=== PATIENT | female | born 1990 | race Caucasian/White ===

== ENCOUNTER 2017-06-26 12:51 | Outpatient (CLI) | payer OTHER ==
[2017-06-26 18:11] LABS: BASOPHILS # (AUTO) 0.1 10^3/uL (0.0-0.1); BASOPHILS % (AUTO) 0.8 %; EOSINOPHILS % (AUTO) 0.7 %; HGB - HEMOGLOBIN 13.3 g/dL (12.0-16.0); LYMPHOCYTES # (AUTO) 1.4 10^3/uL (1.5-3.5); LYMPHOCYTES % (AUTO) 20.5 %; MEAN CORPUSCULAR HEMOGLOBIN 27.5 pg (27.0-31.0); MEAN CORPUSCULAR HGB CONC 32.3 g/dL (32.0-36.0); MEAN CORPUSCULAR VOLUME 85.3 fL (81.0-99.0); MEAN PLATELET VOLUME 9.9 fL (7.9-10.8); MONOCYTES # (AUTO) 0.4 10^3/uL (0.0-1.0); MONOCYTES % (AUTO) 5.1 %; NEUTROPHILS # (AUTO) 5.1 10^3/uL (1.5-6.6); NEUTROPHILS % (AUTO) 72.9 %; PLT - PLATELET COUNT 191 10^3/uL (130-450); RED BLOOD COUNT 4.82 10^6/uL (4.20-5.40); RED CELL DISTRIBUTION WIDTH 14.5 % (12.0-15.0)
[2017-06-26 18:53] LABS: ALBUMIN 4.7 g/dL (3.2-5.5); ALBUMIN/GLOBULIN RATIO 1.5 (1.0-2.2); ALKALINE PHOSPHATASE 53 IU/L (42-121); ALT ALANINE AMINOTRANSFERASE 17 IU/L (10-60); AST ASPARTATE AMINOTRANSFERASE 24 IU/L (10-42); BUN - BLOOD UREA NITROGEN 6 mg/dL (6-20); CALCIUM 9.5 mg/dL (8.5-10.3); CARBON DIOXIDE - CO2 24 mmol/L (21-32); CHLORIDE 104 mmol/L (101-111); CHOL/HDL RATIO 2.1 (<4.4); CHOLESTEROL 145 mg/dL; CREATININE 0.6 mg/dL (0.4-1.0); GFR - MDRD 121 (>89); GLUCOSE 84 mg/dL (70-100); HDL CHOLESTEROL 69 mg/dL; LDL CHOLESTEROL,CALCULATED 65 mg/dL; LDL/HDL RATIO 0.9 (<4.4); SODIUM 136 mmol/L (135-145); TOTAL PROTEIN 7.9 g/dL (6.7-8.2); VLDL CHOLESTEROL 11 mg/dL
== END 2017-06-26 12:52 | disposition home or self-care (01) ==
LOC: LAB.F 12:51
PROVIDERS: ATTEND Physician Assistant Medical
DX: Z00.00 Encounter for general adult medical examination without abnormal findings (principal)
CPT/HCPCS: 36415; 80053; 80061; 82306; 83721; 84443; 85025

== ENCOUNTER 2022-11-30 04:34 | Emergency (ER) | payer OTHER ==
[2022-11-30 04:53] VITALS: BP 108/86; O2SAT 98
--- NOTE | 2022-11-30 05:16 | ED Physician Documentation ---
PD HPI ABD PAIN - Stated complaint Stated Complaint: ABD PX - Chief complaint Chief Complaint: Abd Pain - History obtained from History obtained from: Patient - Additional information Additional information: HPI from patient. Patient c/o RUQ pain, sudden onset approximately 01:30 this morning while awake in bed trying to sleep. Pain does not radiate; it is associated with nausea but no vomiting. No exacerbating nor ameliorating factors. She had one previous episode of similar pain last month, but self-limited and thus did not seek medical attention for the episode. Denies fever. Review of Systems Constitutional: reports: Reviewed and negative Cardiac: reports: Reviewed and negative Respiratory: reports: Reviewed and negative GI: reports: Abdominal Pain, Nausea. denies: Abdominal Swelling, Vomiting, Constipation, Diarrhea : denies: Dysuria, Frequency PD PAST MEDICAL HISTORY - Past Medical History Past Medical History: Yes GI: GERD - Present Medications Home Medications: Ambulatory Orders Medication Instructions Recorded Confirmed Ondansetron Odt [Zofran Odt] 4 mg TL Q6H PRN #14 tablet 11/30/22 oxyCODONE [Roxicodone] 5 - 10 mg PO Q6H PRN #14 tablet 11/30/22 - Allergies Allergies/Adverse Reactions: Allergies Allergy/AdvReac Type Severity Reaction Status Date / Time No Known Drug Allergies Allergy Verified 11/30/22 04:47 PD ED PE NORMAL - Vitals Vital signs reviewed: Yes - General General: Alert and oriented X 3, Well developed/nourished, Other (appears to be in mild/moderate painful distress that waxes and wanes during H+P ) - HEENT HEENT: Moist mucous membranes - Cardiac Cardiac: RRR, No murmur - Respiratory Respiratory: No respiratory distress, Clear bilaterally - Abdomen Abdomen: Normal bowel sounds, Soft, Non tender, Non distended - Back Back: No CVA TTP - Derm Derm: Normal color, Warm and dry, No rash Results - Vitals Vitals: Vital Signs - 24 hr 11/30/22 04:47 Temperature 36.7 C Heart Rate 98 Respiratory 16 Rate Blood Pressure 108/86 H O2 Saturation 98 Oxygen O2 Source Room air - Labs Labs: Laboratory Tests 11/30/22 11/30/22 06:23 06:23 WBC 13.0 H RBC 5.30 Hgb 13.9 Hct 44.4 MCV 83.8 MCH 26.2 L MCHC 31.3 L RDW 14.5 Plt Count 218 MPV 11.6 H Neut # (Auto) 10.6 H Lymph # (Auto) 1.7 [place] # (Auto) 0.4 Eos # (Auto) 0.1 Baso # (Auto) 0.1 Absolute Nucleated RBC 0.00 Nucleated RBC % 0.0 Sodium 136 Potassium 4.2 Chloride 103 Carbon Dioxide 23 Anion Gap 10.0 BUN 11 Creatinine 0.7 Estimated GFR (MDRD) 97 Glucose 135 H Calcium 10.5 H Total Bilirubin 0.4 AST 28 ALT 45 Alkaline Phosphatase 86 Total Protein 8.3 Albumin 4.5 Globulin 3.8 Albumin/Globulin Ratio 1.2 Lipase 26 - Rads (name of study) RUQ US Relevant Findings:: Prelim report reviewed, See rad report PD Medical Decision Making - ED course Complexity details: reviewed results, re-evaluated patient, considered differential, d/w patient ED course: Mild leukocytosis on CBC (WBC 13). Unremarkable ER abdominal panel including LFTs, lipase (insignificant hyperglycemia noted, glucose 135). RUQ US reveals multiple mobile gallstones with mild GB wall thickening but otherwise no findings to suggest cholecystitis. She is given IM toradol , TL zofran. On reevaluation, results d/w patient. She is in NAD and reports excellent symptom relief with these interventions. Return precautions reviewed, and advised patient to follow up with general surgery. Prescriptions for ondansetron and oxycodone e-prescribed to patient's pharmacy of choice. Departure - Departure Disposition: 01 Home, Self Care Clinical Impression: Biliary colic Condition: Good Instructions: ED Gallstone W Biliary Colic Follow-Up: Steven Maza MD [Provider Admit Priv/Credential] - Prescriptions: oxyCODONE [Roxicodone] 5 - 10 mg PO Q6H PRN #14 tablet PRN Reason: Pain >8 Ondansetron Odt [Zofran Odt] 4 mg TL Q6H PRN #14 tablet PRN Reason: Nausea / Vomiting Comments: The ultrasound shows multiple gallstones in the gallbladder; this would certainly explain your symptoms. There were no concerning findings on the blood tests including liver function tests. I have electronically submitted prescriptions for oxycodone (narcotic/opiate pain medication), and ondansetron (antinausea medication) to the [facility] pharmacy in [place]. Given the number of gallstones visualized on the ultrasound, it would be best to follow-up with a general surgeon to discuss possible surgical options for treatment. I provided the on-call surgeon's contact information on these discharge sheets, but you might need a referral from your primary care provider. I am prescribing a short course of narcotic pain medication for you. These are potentially dangerous and addictive medications that should be used carefully. These medications may constipate you. Take an qpmd-hpg-artvwcy stool softener (docusate) twice daily with plenty of water while taking these medications. If you go 24 hours without a bowel movement, take [id number] miralax, per package instructions. Do not drink or drive while taking these medications. If you received narcotic or sedating medications while in the emergency department, do not drive for 24 hours. Store this medication in a safe, secure place and out of reach of children. It is a violation of federal law to give or sell this medication to another person or to use in a manner other than prescribed. The ED will not refill narcotic prescriptions, including prescriptions lost or stolen. To dispose of unwanted medications: 1. [facility] [address] in [place] has a medication drop box. They accept prescription medications (in pill form) Monday through Monday 9:00 a.m. to 5:00 p.m. 2. [facility] accepts prescription medications (in pill form only) for disposal year round. Call for more information. 3. Contact the [facility] for the next [facility] sponsored prescription drug collection event. , [phone], or [phone]; Forms: PCP List Discharge Date/Time: 11/30/22 07:36
[2022-11-30] MEDS ORDERED: ONDANSETRON 4 MG/2 ML VIAL IVP STA (05:42)
[2022-11-30] MEDS ORDERED: KETOROLAC 30 MG/ML VIAL IVP STA (05:42)
--- OUTSIDE RECORDS SUMMARY | 2022-11-30 06:05 | EXTERNAL MEDICAL SUMMARY RPT | Continuity of Care Document ---
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 Name Role Phone Unavailable Unavailable Unavailable Evelyne Condon Pa-C Unavailable Unavailable Medications date description facility 2022-09-22 00:00 famotidine All 2022-09-27 00:00 famotidine All 2022-09-22 00:00 doxepin All 2022-09-27 00:00 doxepin All 2022-09-22 00:00 doxepin All 2022-09-27 00:00 doxepin All 2022-09-22 00:00 ibuprofen All 2022-09-27 00:00 ibuprofen All 2022-09-22 00:00 ibuprofen All 2022-09-27 00:00 ibuprofen All 2022-09-22 00:00 famotidine All 2022-09-27 00:00 famotidine All 2022-09-22 00:00 famotidine All 2022-09-27 00:00 famotidine All 2022-09-22 00:00 famotidine All 2022-09-27 00:00 famotidine All 2022-09-22 00:00 doxepin All 2022-09-27 00:00 doxepin All 2022-09-22 00:00 ibuprofen All 2022-09-27 00:00 ibuprofen All 2022-09-22 00:00 ibuprofen All 2022-09-27 00:00 ibuprofen All 2022-09-22 00:00 doxepin All 2022-09-27 00:00 doxepin All 2022-09-22 00:00 cholecalciferol (vitamin d3 All 2022-09-27 00:00 cholecalciferol (vitamin d3 All Problems date description facility 2022-09-22 00:00 Mixed anxiety and depressive di sorder All 2022-09-22 00:00 Dysthymic disorder All 2022-09-22 00:00 Hypertriglyceridemia All 2022-09-22 00:00 Pure hyperglyceridemia All 2022-09-22 00:00 Other specified anxiety disorde rs All 2022-09-27 00:00 Abscess of anal and rectal agueda ons All 2022-09-27 00:00 Perianal abscess All 2022-09-27 00:00 Anal abscess All Procedures date description facility 2022-09-27 00:00 Visit Code Hold All Social History date description facility 2022-09-22 00:00 Never smoker All Vital Signs date measurement value units 2022-09-27 00:00 BMI 40.88 kg/m2 2022-09-27 00:00 BP_diastolic 81 mmHg 2022-09-27 00:00 BP_systolic 120 mmHg 2022-09-27 00:00 heart_rate 100 /min 2022-09-27 00:00 height_metric 163.83 cm 2022-09-27 00:00 height_standard 64.5 in 2022-09-27 00:00 respiration_rate 16 /min 2022-09-27 00:00 temperature_metric 36.44 C 2022-09-27 00:00 temperature_standard 97.6 F 2022-09-27 00:00 weight_metric 109.32 kg 2022-09-27 00:00 weight_standard 241 lb
[2022-11-30 06:25] LABS: BASOPHILS # (AUTO) 0.1 10^3/uL (0.0-0.1); BASOPHILS % (AUTO) 0.5 %; EOSINOPHILS # (AUTO) 0.1 10^3/uL (0.0-0.7); EOSINOPHILS % (AUTO) 0.6 %; HCT - HEMATOCRIT 44.4 % (37.0-47.0); HGB - HEMOGLOBIN 13.9 g/dL (12.0-16.0); LYMPHOCYTES # (AUTO) 1.7 10^3/uL (1.5-3.5); LYMPHOCYTES % (AUTO) 13.3 %; MEAN CORPUSCULAR HEMOGLOBIN 26.2 pg (27.0-31.0); MEAN CORPUSCULAR HGB CONC 31.3 g/dL (32.0-36.0); MEAN CORPUSCULAR VOLUME 83.8 fL (81.0-99.0); MEAN PLATELET VOLUME 11.6 fL (7.9-10.8); MONOCYTES # (AUTO) 0.4 10^3/uL (0.0-1.0); MONOCYTES % (AUTO) 3.2 %; NEUTROPHILS # (AUTO) 10.6 10^3/uL (1.5-6.6); PLT - PLATELET COUNT 218 10^3/uL (130-450); RED CELL DISTRIBUTION WIDTH 14.5 % (12.0-15.0)
[2022-11-30] MEDS ORDERED: KETOROLAC 30 MG/ML VIAL IM STA (06:33)
[2022-11-30] MEDS ORDERED: ONDANSETRON ODT 4 MG TABLET TL STA (06:34)
[2022-11-30 06:41] LABS: ALBUMIN 4.5 g/dL (3.2-5.5)
[2022-11-30 06:51] LABS: ALBUMIN/GLOBULIN RATIO 1.2 (1.0-2.2); BILIRUBIN,TOTAL 0.4 mg/dL (0.2-1.0); CALCIUM 10.5 mg/dL (8.5-10.3); CREATININE 0.7 mg/dL (0.6-1.3); POTASSIUM 4.2 mmol/L (3.5-4.5); TOTAL PROTEIN 8.3 g/dL (6.4-8.9)
--- NOTE | 2022-11-30 09:19 | Ultrasound Report ---
PROCEDURE: Abdomen Limited INDICATIONS: RUQ pain TECHNIQUE: Real-time focused scanning was performed of the abdomen, with image documentation. COMPARISONS: None. FINDINGS: Liver: Increased liver echogenicity, commonly mild hepatic steatosis. Gallbladder: Multiple mobile stones are seen within the gallbladder. There is mild gallbladder wall t hickening and 4.2 mm. No pericholecystic fluid. Negative sonographic Hsu's sign. Biliary ducts: Intrahepatic bile ducts are non-dilated. Extrahepatic bile duct caliber measures 4.2 mm. Normal is 6-7 mm or less in diameter, or 10 mm or less post-cholecystectomy. Pancreas: Not well visualized due to overlying bowel gas. Right kidney: Normal in size and echotexture. Right kidney measures 11.6 cm long. No hydronephrosis or nephrolithiasis. No solid masses. No complex renal cystic lesions which require follow-up. IMPRESSION: 1.Multiple mobile gallstones are seen. There is mild gallbladder wall thickening. No pericholecystic fluid and a negative sonographic Hsu's sign. If there is strong clinical concern for acute cholecy stitis, HIDA scan can be obtained for further evaluation. 2.Increased echogenicity of the liver, most consistent with hepatic steatosis. Findings are concordant with preliminary interpretation provided by [facility]. Reviewed by: Emir Zuleta MD on 11/30/2022 9:17 AM PDT Approved by: Emir Zuleta MD on 11/30/2022 9:17 AM PDT Station ID: [id number]
== END 2022-11-30 07:36 | disposition home or self-care (01) ==
LOC: ED 04:34
DX: K80.70 Calculus of gallbladder and bile duct without cholecystitis without obstruction (principal)
CPT/HCPCS: 36415; 76705; 80053; 83690; 85025; 96372; 99284; Q0162

== ENCOUNTER 2023-03-02 11:25 | Day surgery (SDC) | payer OTHER ==
[2023-03-02] MEDS ORDERED: LACTATED RINGERS 1,000 ML IV ONE ×2 (11:45→15:58)
[2023-03-02] MEDS ORDERED: ceFAZolin 2 GM VIAL ONE (11:56)
[2023-03-02 12:02] LABS: HCG UR QUAL NEGATIVE
--- NOTE | 2023-03-02 13:38 | HISTORY & PHYSICAL EXAMINATION ---
Chief Complaint - Chief Complaint Chief Complaint: frequent attacks of upper abdominal pain History of Present Illness - History Obtained From Records Reviewed: yes History obtained from: pt Exam Limitations: none - History of Present Illness HPI Comment/Other: numerous 4 mm gallstones and frequent attacks of epigastric pain. no signs/ symptoms cbd stone. History - Past Medical History Cardiovascular: reports: None Respiratory: reports: None Endocrine/Autoimmune: reports: None GI: reports: GERD, Cholelithiasis : reports: None HEENT: reports: Chronic vision loss Psych: reports: Anxiety Musculoskeletal: reports: Chronic back pain Derm: reports: Eczema, Other MRSA Hx?: No Meds/Allgy - Home Medications Home Medications: Ambulatory Orders Medication Instructions Recorded Confirmed Clindamycin Phosphate [Clindagel] 1 applic TP DAILY 02/24/23 02/24/23 - Allergies Allergies/Adverse Reactions: Allergies Allergy/AdvReac Type Severity Reaction Status Date / Time No Known Drug Allergies Allergy Verified 11/30/22 04:47 Review of Systems - Other Findings Other Findings: 10 pt ros as above otherwise unremarkable Exam - Vital Signs Vital Signs: Vital Signs x48h Temp Pulse Resp BP Pulse Ox 03/02/23 11:45 36.8 C 69 16 109/71 98 - Physical Exam General Appearance: positive: No acute distress, Alert Eyes Bilateral: positive: PERRL, EOMI ENT: positive: No signs of dehydration Neck: positive: No JVD, Trachea midline Respiratory: positive: No respiratory distress Cardiovascular: positive: Regular rate & rhythm Abdomen: positive: Non-tender, No distention Neurologic/Psychiatric: positive: Oriented x3 Conclusion/Plan - Problem List (1) Chronic cholecystitis Conclusion/Plan: plan maranda garcia held and consent obtained
[2023-03-02] MEDS ORDERED: BUPIVACAINE 0.25% PF 30 ML VIAL ONE (13:43)
--- NOTE | 2023-03-02 13:43 | ANESTHESIA ---
Pre-Anesthesia VS, & Labs - Diagnosis chronic choleclithiasis - Procedure lap nura Vital Signs: Temp Pulse Resp BP Pulse Ox O2 Flow Rate 36.8 C 69 16 109/71 98 03/02/23 11:45 03/02/23 11:45 03/02/23 11:45 03/02/23 11:45 03/02/23 11:45 Height: 5 ft 4 in Weight (kg): 98.9 kg Body Mass Index: 37.4 BMI Classification: Obese - NPO >8 hours - Is Patient ?: No Home Medications and Allergies Home Medications: Ambulatory Orders Clindamycin Phosphate [Clindagel] 1 applic TP DAILY 02/24/23 Active Medications Scopolamine HBr (Scopolamine Patch) 1 patch TOP Q3D ANGELINA Clindamycin Phosphate [Clindagel] 1 applic TP DAILY 02/24/23 Allergies/Adverse Reactions: Allergies Allergy/AdvReac Type Severity Reaction Status Date / Time No Known Drug Allergies Allergy Verified 11/30/22 04:47 Anes History & Medical History - Anesthetic History Anesthesia Complications: reports: No previous complications Family history of Anesthesia Complications: Denies Family history of Malignant Hyperthermia: Denies - Medical History Cardiovascular: reports: None Pulmonary: reports: None Gastrointestinal: reports: GERD, Cholelithiasis Urinary: reports: None Musculoskeletal: reports: Chronic back pain Endocrine/Autoimmune: reports: None Skin: reports: Eczema, Other Exam General: Alert, Oriented x3, Cooperative Dental: WNL Mouth Openin Fingerbreadth Neck Mobility: Normal Mallampati classification: II Thyromental Distance: 4-6 cm Respiratory: Lungs clear Cardiovascular: Regular rate Plan Anesthesia Type: General Consent for Procedure(s) Verified and Reviewed: Yes Code Status: Attempt Resuscitation ASA classification: 2-Mild systemic disease Is this case an emergency?: No
[2023-03-02] MEDS ORDERED: HYDROmorphone 0.5 MG/0.5 ML SYRINGE IVP PRN ×2 (13:44→16:03)
[2023-03-02] MEDS ORDERED: METOCLOPRAMIDE 10 MG/2 ML VIAL IVP PRN (13:44)
[2023-03-02] MEDS ORDERED: ONDANSETRON 4 MG/2 ML VIAL IVP PRN ×2 (13:44→16:03)
[2023-03-02] MEDS ORDERED: ePHEDrine 50 MG/ML VIAL IVP PRN (13:44)
[2023-03-02] MEDS ORDERED: NALOXONE 0.4 MG/ML VIAL IVP PRN (13:44)
[2023-03-02] MEDS ORDERED: ATROPINE ABBOJECT 1 MG/10 ML SYRINGE IVP PRN (13:44)
[2023-03-02] MEDS ORDERED: fentaNYL 100 MCG/2 ML VIAL IVP PRN (13:44)
[2023-03-02] MEDS ORDERED: MORPHINE 2 MG/ML CARPUJECT IVP PRN (13:44)
[2023-03-02] MEDS ORDERED: KETOROLAC 30 MG/ML VIAL ONE (13:48)
[2023-03-02] MEDS ORDERED: MIDAZOLAM 2 MG/2 ML VIAL ONE (13:48)
[2023-03-02] MEDS ORDERED: DEXAMETHASONE 4 MG/ML VIAL ONE (13:48)
[2023-03-02] MEDS ORDERED: PROPOFOL 200 MG/20 ML VIAL IVP ONE ×2 (13:48→15:39)
[2023-03-02] MEDS ORDERED: ROCURONIUM 50 MG/5 ML VIAL ONE (13:48)
[2023-03-02] MEDS ORDERED: LIDOCAINE-PF 2% 10 ML AMP SUBQ ONE (13:48)
[2023-03-02] MEDS ORDERED: SCOPOLAMINE PATCH TOP SCH (14:00)
[2023-03-02] MEDS ORDERED: LACTATED RINGERS 1,000 ML IV SCH (14:00)
[2023-03-02] MEDS ORDERED: ONDANSETRON 4 MG/2 ML VIAL ONE (14:15)
[2023-03-02] MEDS ORDERED: BUPIVACAINE 0.25% PF 30 ML VIAL SUBQ ONE (14:22)
[2023-03-02] MEDS ORDERED: ACETAMINOPHEN 1,000 MG/100 ML 1,000 MG/100 ML BAG IV ONE (14:24)
[2023-03-02] MEDS ORDERED: SUGAMMADEX 200 MG/2 ML VIAL IVP ONE (14:52)
[2023-03-02] MEDS ORDERED: fentaNYL 100 MCG/2 ML VIAL ONE (15:38)
[2023-03-02] MEDS ORDERED: HYDROcod/ACETAM 5/325 MG TABLET PO PRN (16:03)
--- NOTE | 2023-03-02 16:19 | OPERATIVE REPORT ---
Operative Report - General Procedure Date: 03/02/23 Planned Procedure: lap nura Pre-Op Diagnosis: chronic cholecystitis Procedure Performed: lap nura Post Op Diagnosis: chronic cholecystitis - Procedure Note Primary Surgeon: zoie bailey Anesthesia Technique: General ET tube, Local Pathology: gallbladder Estimated Blood Loss (mL): 2 Drain/Tube Type: Other (none) Indications: gallstones and gallbladder pain Findings: as above. 2/3 tight with stones. 2 mm cystic duct Complications: none - Other Other Information/Narrative: The patient was properly identified, brought to the operating room and placed in supine position. Sequential compression devices were placed. General endotracheal anesthesia was induced. The patient was prepped and draped in a sterile fashion and given preoperative antibiotics. Local anesthetic was given to incision areas. An incision was made in the periumbilical area. Dissection proceeded down to fascia. The fascia was incised lifted upwards and abdomen entered with a Veress needle. CO2 was insufflated to a pressure of 15. An 11 mm trocar followed by a 30 degree scope was placed. There was no evidence of injury from Veress needle or trocar placement. Under direct vision 2 5 mm trochars were placed in the right upper quadrant and an 11 mm trocar was placed in the epigastrium. Body of the gallbladder was retracted anterior. Lateral attachments were partially taken down further mobilizing the gallbladder more anterior and away from the duodenum. The infundibulum of the gallbladder was then retracted right lateral and caudad. With minimal use of cautery a large bare cystic plate area or window was carefully created. The cystic duct was inspected from right lateral and left lateral positions. [] The cystic duct was then clipped at the gallbladder and 3 times slightly proximal and sharply divided. The cystic artery was clipped at the gallbladder and then 2 times slightly proximal and sharply divided. The gallbladder was mobilized off from the bed of the liver with hook cautery. The gallbladder was placed in Endo Catch bag and brought out through the epigastric trocar site. Hemostasis was assured. Trochars were removed under direct vision. Fascia at the larger trocar sites was closed with [id number] are running 0 Vicryl suture. Subcutaneous tissue was irrigated and skin closed with interrupted 4-0 Monocryl. Dressings were applied. Patient tolerated the procedure well was awakened and brought to recovery in good condition.
[2023-03-02 18:07] VITALS: BP 100/78; O2SAT 98
--- NOTE | 2023-03-02 18:49 | ANESTHESIA POST OP EVALUATION ---
Anesthesia Post Eval - Post Anesthesia Eval Vitals: Last Vital Signs Temp 36.7 C 03/02/23 17:57 Pulse 84 03/02/23 17:57 Resp 17 03/02/23 17:57 BP 100/78 03/02/23 17:57 Pulse Ox 98 03/02/23 17:57 O2 Flow Rate CV Function Including HR & BP: Stable Pain Control: Satisfactory Nausea & Vomiting: Negative Mental Status: Baseline Respiratory Status: Airway Patent Hydration Status: Satisfactory Anesthesia Complications: None
== END 2023-03-02 18:10 | disposition home or self-care (01) ==
LOC: SDS 11:25 → MS3 16:28 → SDS 18:10
PROVIDERS: ATTEND Surgery
PROC: 0FT44ZZ Resection of Gallbladder, Percutaneous Endoscopic Approach (ICD-10-PCS; principal; 2023-03-02 12:45)
DX: K80.10 Calculus of gallbladder with chronic cholecystitis without obstruction (principal); K21.9 Gastro-esophageal reflux disease without esophagitis; E66.9 Obesity, unspecified; Z68.37 Body mass index [BMI] 37.0-37.9, adult
CPT/HCPCS: 47562; 81025; J0131; J3490; J7120